=== PATIENT | female | born 1965 | race Caucasian/White ===

== ENCOUNTER 2024-03-01 06:17 | Day surgery (SDC) | payer OTHER ==
[~2024-03-01] VITALS: Ht 172.7 cm; Wt 60.0 kg
[~2024-03-01 06:17] MED LIST: IBUP400 PO; Lactated Ringer's 1,000 ML IV ONE
[2024-03-01] MEDS ORDERED: NS 50 ML IV ONE (06:43)
[2024-03-01] MEDS ORDERED: CeFAZolin Sodium 2,000 MG VIAL ONE (06:43)
[2024-03-01] MEDS ORDERED: Lactated Ringer's 1,000 ML IV ONE ×3 (06:50→08:51)
[2024-03-01] MEDS ORDERED: Ropivacaine 0.5% HCL/PF 5 MG/ML 30ML Vial ONE (06:50)
[2024-03-01] MEDS ORDERED: FentaNYL Citrate 50 MCG/ML 2 ML Injection ONE (06:57)
[2024-03-01] MEDS ORDERED: Ondansetron HCl 2 MG / ML 2ML Vial ONE (06:57)
[2024-03-01] MEDS ORDERED: propofoL 20 ML IV ONE (06:57)
[2024-03-01] MEDS ORDERED: Dexamethasone Sod Phos 10 MG/ML 1ML VIAL ONE (06:57)
[2024-03-01] MEDS ORDERED: Ketorolac Tromethamine 30mg Vial ONE (06:58)
[2024-03-01] MEDS ORDERED: Dexmedetomidine HCL 200 MCG / 2 ML ONE (07:03)
[2024-03-01] MEDS ORDERED: Lidocaine HCl 4% 5 ML SDA ONE (07:17)
[2024-03-01] MEDS ORDERED: Midazolam HCl 1MG / ML 2ML Vial ONE (07:21)
[2024-03-01] MEDS ORDERED: EPINEPhrine HCl 1 MG/ML 1ML Amp XX ONE (07:51)
[2024-03-01] MEDS ORDERED: Scopolamine Hydrobromide Patch ONE (08:16)
[2024-03-01] MEDS ORDERED: Atarax10 MG PO (09:01)
[2024-03-01 09:27] VITALS: BP 98/65
--- NOTE | 2024-03-01 10:32 | NUR ---
03/01/24 1032 Archie Win PT ADVISED TO MONITOR B/P AT HOME, AND FOLLOW UP IF NEEDED.
== END 2024-03-01 10:25 | disposition home or self-care (01) ==
LOC: ORSCSDS 06:17
PROVIDERS: Podiatrist Foot & Ankle Surgery
PROC: 0SGK04Z Fusion of Right Tarsometatarsal Joint with Internal Fixation Device, Open Approach (ICD-10-PCS; principal; 2024-03-01 07:30)
DX: M20.11 Hallux valgus (acquired), right foot (principal); M20.5X1 Other deformities of toe(s) (acquired), right foot; F41.9 Anxiety disorder, unspecified; G40.909 Epilepsy, unspecified, not intractable, without status epilepticus; Z79.899 Other long term (current) drug therapy
CPT/HCPCS: A9270; C1713; J0171; J0690; J1100; J1885; J2001; J2250; J2405; J2704; J2795; J3010; J7120

== ENCOUNTER → 2024-10-31 | Outpatient (CLI) | payer OTHER ==
[~2024-10-31] MED LIST changes: +Atarax10 MG PO; -Lactated Ringer's 1,000 ML IV ONE
[2024-11-07 07:43] LABS: HPV HIGH RISK BY TMA Not Detected; HPV SOURCE Cervical
== END ==
LOC: LAB 15:19 → LAB SHORT 15:19
PROVIDERS: Nurse Practitioner Family
DX: Z01.419 Encounter for gynecological examination (general) (routine) without abnormal findings (principal)
CPT/HCPCS: 87624; G0123